=== PATIENT | male | born 1955 ===

== ENCOUNTER 2018-03-25 10:28 | Emergency (ER) | payer OTHER ==
[~2018-03-25] VITALS: Ht 182.9 cm; Wt 81.6 kg
[2018-03-25] MEDS ORDERED: GRALISE1 EACH (10:52)
[2018-03-25] MEDS ORDERED: XANAX1 MG (10:52)
[2018-03-25] MEDS ORDERED: UROXATRAL10 MG (10:53)
[2018-03-25] MEDS ORDERED: CYMBALTA60 MG (10:53)
== END 2018-03-25 13:39 | disposition home or self-care (01) ==
LOC: ER 10:28
DX: N40.0 Benign prostatic hyperplasia without lower urinary tract symptoms (principal)

== ENCOUNTER 2018-08-04 13:25 | Outpatient (CLI) | payer OTHER ==
[~2018-08-04 13:25] MED LIST: CYMBALTA60 MG; GRALISE1 EACH; UROXATRAL10 MG; XANAX1 MG
== END 2018-08-04 13:32 | disposition home or self-care (01) ==
LOC: LAB 13:25
DX: R97.21 Rising PSA following treatment for malignant neoplasm of prostate (principal)

== ENCOUNTER 2019-02-02 13:07 | Outpatient (CLI) | payer OTHER | END 2019-02-02 13:24 | disposition home or self-care (01) | LOC: LAB 13:07 | DX: R97.21 Rising PSA following treatment for malignant neoplasm of prostate (principal) ==

== ENCOUNTER 2019-02-12 15:30 | Outpatient (CLI) | payer OTHER | END 2019-02-12 15:58 | disposition home or self-care (01) | LOC: LAB 15:30 | DX: R97.20 Elevated prostate specific antigen [PSA] (principal) ==

== ENCOUNTER 2019-03-06 07:32 | Outpatient (CLI) | payer OTHER | END 2019-03-06 07:39 | disposition home or self-care (01) | LOC: SONOGRAMA 07:32 | DX: C61 Malignant neoplasm of prostate (principal); R97.20 Elevated prostate specific antigen [PSA] ==

== ENCOUNTER 2019-05-15 07:14 | Outpatient (CLI) | payer OTHER | END 2019-05-15 07:32 | disposition home or self-care (01) | LOC: LAB 07:14 | DX: C61 Malignant neoplasm of prostate (principal); Z01.810 Encounter for preprocedural cardiovascular examination ==

== ENCOUNTER 2019-05-15 08:00 | Inpatient (IN) | payer OTHER ==
[~2019-05-15] VITALS: Ht 182.9 cm; Wt 84.8 kg
[2019-05-18] MEDS ORDERED: WELLBUTRIN SR150 MG PO (15:30)
[2019-05-18] MEDS ORDERED: [UNRECOGNIZED DRUG - OTHER] PO (15:31)
[2019-05-27] MEDS ORDERED: UROXATRAL10 MG PO (08:13)
== END 2019-05-29 12:12 | disposition home or self-care (01) | DRG 708 ==
LOC: O/R 05-27 06:00 → SURG 05-27 07:00 → SURH 05-27 13:18
PROVIDERS: ADMIT Urology
PROC: 07TC0ZZ Resection of Pelvis Lymphatic, Open Approach (ICD-10-PCS; 2019-05-27)
PROC: 0VT30ZZ Resection of Bilateral Seminal Vesicles, Open Approach (ICD-10-PCS; 2019-05-27)
PROC: 0VT00ZZ Resection of Prostate, Open Approach (ICD-10-PCS; principal; 2019-05-27 07:00)
DX: C61 Malignant neoplasm of prostate (principal)

== ENCOUNTER 2023-05-13 15:13 | Outpatient (CLI) | payer OTHER ==
[~2023-05-13 15:13] MED LIST changes: +UROXATRAL10 MG PO; +WELLBUTRIN SR150 MG PO; +[UNRECOGNIZED DRUG - OTHER] PO
== END 2023-05-13 15:20 | disposition home or self-care (01) ==
LOC: LAB 15:13
PROVIDERS: ATTEND Urology
DX: C61 Malignant neoplasm of prostate (principal)